=== PATIENT | male | born 1995 | race Caucasian/White ===

== ENCOUNTER 2020-09-22 08:21 | Emergency (ER) | payer OTHER ==
[~2020-09-22] VITALS: Ht 180.3 cm; Wt 75.0 kg
[2020-09-22] MEDS ORDERED: TETanus/Pertussis (Acell)/Diphther VAC/PF (Tdap-Adult) 0.5ml syringe IMVAC ONE (09:10)
[2020-09-22 10:23] VITALS: BP 124/69
[2020-09-22] MEDS ORDERED: SULF1TAB49 PO (11:06)
[2020-09-22] MEDS ORDERED: TRAM50TA2 PO (11:07)
[2020-09-25] MEDS ORDERED: NO HOME MEDS (16:40)
== END 2020-09-22 13:07 | disposition home or self-care (01) ==
LOC: ER 08:21
DX: S91.311A Laceration without foreign body, right foot, initial encounter (principal); S80.02XA Contusion of left knee, initial encounter; S80.01XA Contusion of right knee, initial encounter; S70.312A Abrasion, left thigh, initial encounter; S70.311A Abrasion, right thigh, initial encounter; S80.812A Abrasion, left lower leg, initial encounter; S80.811A Abrasion, right lower leg, initial encounter; S90.511A Abrasion, right ankle, initial encounter; S90.512A Abrasion, left ankle, initial encounter; S90.812A Abrasion, left foot, initial encounter; S00.81XA Abrasion of other part of head, initial encounter; M54.5 Low back pain; L08.9 Local infection of the skin and subcutaneous tissue, unspecified; G89.29 Other chronic pain; F17.200 Nicotine dependence, unspecified, uncomplicated; Z98.890 Other specified postprocedural states; Z72.89 Other problems related to lifestyle; Z59.0 Homelessness; Z88.0 Allergy status to penicillin; Z88.1 Allergy status to other antibiotic agents; Z79.899 Other long term (current) drug therapy; X58.XXXA Exposure to other specified factors, initial encounter; Y93.89 Activity, other specified; Y92.89 Other specified places as the place of occurrence of the external cause; Y99.8 Other external cause status
CPT/HCPCS: 72131; 73560; 73600; 87070; 87077; 87186; 90471; 90715; 99285

== ENCOUNTER 2020-09-24 08:41 | Emergency (ER) | payer MEDICAID, OTHER ==
[~2020-09-24] VITALS: Ht 180.3 cm; Wt 85.0 kg
[~2020-09-24 08:41] MED LIST: SULF1TAB49 PO; TRAM50TA2 PO
[2020-09-24] MEDS ORDERED: ketorolac tromethamine 15mg/ml inj. IV ONE (10:10)
[2020-09-24 10:34] LABS: HEMOGLOBIN 11.2 g/dl (14.0-17.9); LYMPHOCYTES % (AUTO) 1.9 % (21-51); MEAN CORPUSCULAR HGB CONC 33.4 g/dL (33.0-36.5); RED CELL DISTRIBUTION WIDTH 13.2 % (11.5-14.5)
[2020-09-24 10:35] LABS: BASOPHILS % (AUTO) 0.2 % (0-1); EOSINOPHILS % (AUTO) 0.1 % (0-6); HEMATOCRIT 33.6 % (42.0-52.0); LYMPHOCYTES # (AUTO) 0.3 X10'3 (1.1-4.8); MEAN CORPUSCULAR HEMOGLOBIN 30.7 PG (27.0-31.0); MEAN CORPUSCULAR VOLUME 91.9 FL (78-98); MEAN PLATELET VOLUME 8.5 FL (7.4-10.4); MONOCYTES # (AUTO) 1.6 X10'3 (0-0.9); MONOCYTES % (AUTO) 8.5 % (2-12); NEUTROPHILS # (AUTO) 16.6 X10'3 (1.8-7.7); NEUTROPHILS % (AUTO) 89.3 % (42-75); PLATELET COUNT 171 X10'3 (140-440); RED BLOOD COUNT 3.66 X10'6 (4.70-6.10); WHITE BLOOD COUNT 18.5 X10'3 (4.5-11.0)
[2020-09-24 10:37] LABS: ALANINE AMINOTRANSFERASE 82 U/L (12-78); ALBUMIN 2.7 G/DL (3.4-5.0); ALBUMIN/GLOBULIN RATIO 0.7 (1.1-1.5); ALKALINE PHOSPHATASE 65 IU/L (46-116); ANION GAP 11 (8-16); ASPARTATE AMINO TRANSFERASE 54 U/L (10-37); BILIRUBIN,TOTAL 1.4 MG/DL (0.1-1.0); BLOOD UREA NITROGEN 13 MG/DL (7-18); BUN/CREATININE RATIO 13.5 (5.4-32.0); CALCIUM 8.6 MG/DL (8.5-10.1); CHLORIDE 92 MMOL/L (99-107); CREATININE 0.96 MG/DL (0.60-1.10); ETHANOL < 0.010 GM/DL (0.0-0.010); GLUCOSE 118 MG/DL (70-104); POTASSIUM 3.3 MMOL/L (3.5-5.1); SODIUM 130 MMOL/L (135-145); TOTAL CARBON DIOXIDE 26.6 MMOL/L (24-32); TOTAL PROTEIN 6.5 G/DL (6.4-8.2); eGFR > 90 ML/MIN
[2020-09-24] MEDS ORDERED: normal saline 1000ML IV soln IVB ONE ×2 (11:05)
[2020-09-24 11:43] LABS: PLATELET ESTIMATE NORMAL; TOTAL CELLS COUNTED 100
[2020-09-24 11:45] LABS: LARGE PLATELETS FEW; TOXIC GRANULATION 1+
[2020-09-24 12:30] LABS: CLARITY,URINE SLIGHTLY CLOUDY (Clear); COLOR,URINE YELLOW (Yellow); GLUCOSE, URINE NEGATIVE (Neg); KETONES,URINE NEGATIVE (Neg); LEUKOCYTE ESTERASE ,URINE NEGATIVE (Neg); NITRITES, URINE NEGATIVE (Neg); OCCULT BLOOD,URINE NEGATIVE (Neg); PROTEIN,URINE 30 mg/dl (Neg); UROBILINOGEN,URINE >=8.0 E.U/dL (0.2-1.0)
[2020-09-24 12:34] LABS: UA COLLECTION TYPE STRAIGHT CATH
[2020-09-24 12:35] LABS: MUCUS STRANDS FEW /LPF (Neg); SQUAMOUS EPITHELIAL CELL,UR FEW /LPF (FEW)
[2020-09-24 12:37] LABS: BACTERIA,URINE FEW /HPF (Neg); RBC,URINE 0-2 /HPF (0-2); RENAL CELLS, URINE FEW /HPF; TRANSITIONAL EPI CELLS,URINE FEW /HPF; WBC,URINE 0-4 /HPF (0-4)
[2020-09-24 12:41] LABS: URINE AMPHETAMINE SCREEN POSITIVE (Neg); URINE BARBITUATE SCREEN NEGATIVE (Neg); URINE BENZODIAZEPINES SCREEN NEGATIVE (Neg); URINE CANNABINOID SCREEN POSITIVE (Neg); URINE COCAINE SCREEN NEGATIVE (Neg); URINE METHADONE SCREEN NEGATIVE (Neg); URINE OPIATE SCREEN NEGATIVE (Neg); URINE PHENCYCLIDINE SCREEN NEGATIVE (Neg)
[2020-09-24 13:04] VITALS: BP 109/74
[2020-09-24] MEDS ORDERED: vancomycin/NS 1 GM ADD-VANTAGE 250 ML X 1 DOSE IV ONE (13:30)
[2020-09-24] MEDS ORDERED: DOXY100C43 PO (14:04)
--- NOTE | 2020-09-24 14:23 | NUR ---
PT WANTS TO LEAVE AMA. INSTRUCT PT HOW SERIOUS HIS CONDITION IS, PT STATES MY LEG ISNT BOTHERING ME THAT MUCH. INFORM PT THAT ITS POSSIBLE THAT HE COULD LOSE THE LEG FROM ABOVE THE KNEE. PT SEEMS CONERNED AND STATES HE WILL TAKE THE ABX RX THAT WE ARE SENDING HOME WITH HIM.
--- NOTE | 2020-09-24 14:25 | NUR ---
A TAXI IS BEING CALLED TO TAKE PT TO THE [facility]. PT TAKEN TO THE LOBBY VIA W/C BY [employer].
[2020-09-25] MEDS ORDERED: NO HOME MEDS (16:40)
[2020-09-30] MEDS ORDERED: HYDR-3972 PO (10:48)
[2020-09-30] MEDS ORDERED: DOCU-148 PO (10:48)
[2020-09-30] MEDS ORDERED: CLE150C PO (10:48)
== END 2020-09-24 14:27 | disposition left against medical advice (07) ==
LOC: ER 08:42
DX: M00.9 Pyogenic arthritis, unspecified (principal); G89.29 Other chronic pain; F17.200 Nicotine dependence, unspecified, uncomplicated; F12.90 Cannabis use, unspecified, uncomplicated; Z72.89 Other problems related to lifestyle; Z59.0 Homelessness; Z88.0 Allergy status to penicillin; Z88.1 Allergy status to other antibiotic agents; Z79.899 Other long term (current) drug therapy
CPT/HCPCS: 36415; 80053; 80305; 80320; 81001; 85007; 85025; 85610; 96361; 96374; 99283; J1885; J7030; 96375; 99284

== ENCOUNTER 2020-10-05 12:56 | Emergency (ER) | payer MEDICAID ==
[~2020-10-05] VITALS: Ht 182.9 cm; Wt 75.0 kg
[~2020-10-05 12:56] MED LIST changes: +CLE150C PO; +DOCU-148 PO; +HYDR-3972 PO; -SULF1TAB49 PO; -TRAM50TA2 PO
[2020-10-05] MEDS ORDERED: LIDOcaine 1% 30ml preserv. free vial SQ STA (13:17)
[2020-10-05 13:52] LABS: BASOPHILS % (AUTO) 0.3 % (0-1); EOSINOPHILS % (AUTO) 0.5 % (0-6); HEMATOCRIT 36.6 % (42.0-52.0); HEMOGLOBIN 12.1 g/dl (14.0-17.9); LYMPHOCYTES # (AUTO) 1.4 X10'3 (1.1-4.8); LYMPHOCYTES % (AUTO) 16.5 % (21-51); MEAN CORPUSCULAR HEMOGLOBIN 30.6 PG (27.0-31.0); MEAN CORPUSCULAR VOLUME 92.7 FL (78-98); MEAN PLATELET VOLUME 6.7 FL (7.4-10.4); MONOCYTES # (AUTO) 0.5 X10'3 (0-0.9); MONOCYTES % (AUTO) 5.8 % (2-12); NEUTROPHILS # (AUTO) 6.3 X10'3 (1.8-7.7); NEUTROPHILS % (AUTO) 76.9 % (42-75); PLATELET COUNT 519 X10'3 (140-440); RED BLOOD COUNT 3.95 X10'6 (4.70-6.10); RED CELL DISTRIBUTION WIDTH 14.5 % (11.5-14.5); WHITE BLOOD COUNT 8.2 X10'3 (4.5-11.0)
[2020-10-05 14:16] LABS: ALANINE AMINOTRANSFERASE 75 U/L (12-78); ALBUMIN 3.2 G/DL (3.4-5.0); ALBUMIN/GLOBULIN RATIO 0.7 (1.1-1.5); ALKALINE PHOSPHATASE 84 IU/L (46-116); ANION GAP 8 (8-16); ASPARTATE AMINO TRANSFERASE 35 U/L (10-37); BILIRUBIN,TOTAL 0.3 MG/DL (0.1-1.0); BLOOD UREA NITROGEN 18 MG/DL (7-18); BUN/CREATININE RATIO 19.8 (5.4-32.0); CALCIUM 9.1 MG/DL (8.5-10.1); CHLORIDE 106 MMOL/L (99-107); CREATININE 0.91 MG/DL (0.60-1.10); GLUCOSE 91 MG/DL (70-104); POTASSIUM 4.1 MMOL/L (3.5-5.1); SODIUM 142 MMOL/L (135-145); TOTAL PROTEIN 7.6 G/DL (6.4-8.2); eGFR > 90 ML/MIN
[2020-10-05] MEDS ORDERED: CLIN-143 PO (15:20)
[2020-10-05] MEDS ORDERED: ibuprofen tablet 400 MG TABLET PO ONE (15:25)
[2020-10-05] MEDS ORDERED: acetaminophen 325mg tablet PO ONE (15:25)
[2020-10-05 15:37] VITALS: BP 124/72
== END 2020-10-05 15:40 | disposition home or self-care (01) ==
LOC: ER 12:56
DX: L02.415 Cutaneous abscess of right lower limb (principal); M79.651 Pain in right thigh; R31.9 Hematuria, unspecified; G89.29 Other chronic pain; F17.200 Nicotine dependence, unspecified, uncomplicated; F12.90 Cannabis use, unspecified, uncomplicated; Z72.89 Other problems related to lifestyle; Z59.0 Homelessness; Z98.890 Other specified postprocedural states; Z88.0 Allergy status to penicillin; Z88.1 Allergy status to other antibiotic agents; Z79.2 Long term (current) use of antibiotics
CPT/HCPCS: 10060; 36415; 80053; 83605; 85025; 99283